=== PATIENT | male | born 1970 | race Two or more races ===

== ENCOUNTER 2018-11-21 12:14 | Emergency (ER) | payer BC ==
[~2018-11-21] VITALS: Ht 167.6 cm; Wt 79.8 kg
[2018-11-21 12:18] VITALS: Ht 167.6 cm; Wt 79.8 kg
[2018-11-21 13:07] LABS: BASOPHIL % 0.3 % (0-2); PLATELET COUNT 332 x10^3mcL (130-400); RED CELL DISTRIBUTION WIDTH 13.3 % (11.5-14.5)
[2018-11-21 13:12] LABS: AMPHETAMINE QUAL UR NONE DETECTED (See below)
[2018-11-21 13:12] LABS: CALCIUM 9.2 mg/dL (8.5-10.1); CARBON DIOXIDE 25.1 mmol/L (21-32); CHLORIDE SERUM 103 mmol/L (98-107); GFR1 > 60 mL/min; GLUCOSE SERUM 115 mg/dL (74-106); POTASSIUM SERUM 3.7 mmol/L (3.5-5.1); SODIUM SERUM 140 mmol/L (136-145)
[2018-11-21 13:17] LABS: ALKALINE PHOSPHATASE 70 U/L (46-116); ALT/SGPT 11 U/L (16-63); AST/SGOT 19 U/L (15-37); BILIRUBIN TOTAL 0.48 mg/dL (0.20-1.00); HDL CHOLESTEROL 41 mg/dL (40-60); TOTAL PROTEIN, SERUM 7.8 g/dL (6.4-8.2); TRIGLYCERIDES 97 mg/dL (<150)
[2018-11-21 13:18] LABS: CHOLESTEROL 213 mg/dL (<200); CHOLESTEROL/HDL RATIO 5.2
[2018-11-21 15:48] VITALS: BP 134/77
== END 2018-11-21 15:48 | disposition home or self-care (01) ==
LOC: ED 12:14
PROVIDERS: Emergency Medicine
DX: R42 Dizziness and giddiness (principal); E78.00 Pure hypercholesterolemia, unspecified; I10 Essential (primary) hypertension; R00.2 Palpitations; R20.0 Anesthesia of skin; Z72.0 Tobacco use
CPT/HCPCS: 36415; 99406; Q0092